=== PATIENT | male | born 2000 | race Caucasian/White ===

== ENCOUNTER 2022-06-27 16:08 | Outpatient (REF) | payer MEDICAID, SELFPAY ==
--- NOTE | ~2022-06-27 | XR_ITS ---
EXAMINATION: XR CHEST CLINICAL INFORMATION: Pneumonia COMPARISON: None TECHNIQUE: 2 views of the chest were obtained. FINDINGS: No significant abnormality is noted involving the heart, lungs, mediastinum, bony thorax or soft tissues. XR/XR chest 2V IMPRESSION: Unremarkable examination.
== END 2022-06-27 16:09 | disposition home or self-care (01) ==
LOC: HO.XRAY 16:08
PROVIDERS: Absent Provider Nurse Practitioner Primary Care; PCP Nurse Practitioner Primary Care; Visit Provider Internal Medicine Geriatric Medicine
DX: J18.9 Pneumonia, unspecified organism (principal)
CPT/HCPCS: 71046